=== PATIENT | female | born 1960 | race Caucasian/White ===

== ENCOUNTER 2019-02-21 08:12 | Day surgery (SDC) | payer OTHER ==
[2019-02-21] VITALS (7 sets, daily range): BP systolic 94–134; BP diastolic 54–75; PULSE 54–67; RESP 16–20; Ht 160 cm; Wt 63.0 kg
[~2019-02-21] VITALS: Ht 160 cm; Wt 63.0 kg
[2019-02-21] MEDS ORDERED: PROPOFOL 20 ML ONE ×2 (10:12→10:32)
[2019-02-21] MEDS ORDERED: LIDOCAINE 2% (SDV) 5 ML INJ ONE (10:12)
[2019-02-21] MEDS ORDERED: MIDAZOLAM 1 MG/ML 2 ML INJ ONE ×2 (10:13)
--- NOTE | 2019-02-21 10:37 | PREAC ---
Date/Time of Note Date/Time of Note DATE: 02/21/19 TIME: 10:35 Anesthesia Eval and Record Evaluation Time Pre-Procedure Interview DATE: 02/21/19 TIME: 10:35 Age 58 Sex female NPO: 8 hrs Preoperative diagnosis Colon screening Planned procedure Colonoscopy Past Medical History Past Medical History: Includes Cardio: HTN, Dyslipidemia Hepatic: Other (Fatty liver) GI: Obesity Surgery & Anesthesia Issues No known issue Meds Anticoagulation: No Beta Jorge within 24 hr: No Reason Beta Jorge not given: Pt. not on B-Jorge Reported Medications [None] No Conflict Check 02/21/19 Meds reviewed: Yes Allergies Coded Allergies: No Known Allergy (Unverified , 02/21/19) Allergies Reviewed: Yes Labs/Studies Labs Reviewed: Reviewed by anesthesiologist test: N/A Studies: ECG Pre-procedure Exam Last vitals Vital Signs Date Temp Pulse Resp B/P (MAP) Pulse Ox O2 O2 Flow FiO2 Time Delivery Rate 02/21/19 98.0 67 18 134/75 98 Room Air 10:00 (94) Airway: Adequate mouth opening, Adequate thyromental dist Mallampati: Mallampati II Teeth: Normal Lung: Normal Heart: Normal ASA Physical Status ASA physical status: 3 Emergency: None Planned Anesthetic General/MAC: MAC Planned Pain Management Parenteral pain med Pre-operative Attestations Prior to commencing anesthesia and surgery, the patient was re-evaluated, there was verification of: *The patient's identity *The results of appropriate recent lab work and preoperative vital signs *The above evaluation not changing prior to induction *Anesthetic plan, risk benefits, alternative and complications discussed with patient/family; questions answered; patient/family understands, accepts and wishes to proceed. BERT BETTS MD Feb 21, 2019 10:37
--- NOTE | 2019-02-21 10:38 | PAC ---
Date/Time of Note Date/Time of Note DATE: 02/21/19 TIME: 10:37 Post-Anesthesia Notes Post-Anesthesia Note Last documented vital signs Vital Signs Date Temp Pulse Resp B/P (MAP) Pulse Ox O2 O2 Flow FiO2 Time Delivery Rate 02/21/19 98.0 67 18 134/75 98 Room Air 10:00 (94) Activity: WNL Respiratory function: WNL Cardiovascular function: WNL Mental status: Baseline Pain reasonably controlled: Yes Hydration appropriate: Yes Nausea/Vomiting absent: Yes Comments BP:102/56, P:68, Spo2:100%, T:98,4 BERT BETTS MD Feb 21, 2019 10:38
== END 2019-02-21 14:24 | disposition home or self-care (01) ==
LOC: GIL 08:12
PROVIDERS: ATTEND Internal Medicine Gastroenterology
DX: Z12.11 Encounter for screening for malignant neoplasm of colon (principal); K64.8 Other hemorrhoids; I10 Essential (primary) hypertension
CPT/HCPCS: 45378; J2250